=== PATIENT | male | born 1975 | race Caucasian/White ===

== ENCOUNTER 2017-01-05 13:02 | Outpatient (CLI) ==
[2015-05-21 08:37] VITALS: BMI 30.8
--- NOTE | 2017-01-05 13:36 | DI ---
EXAM: Right foot three views HISTORY: Bilateral foot pain COMPARISON: None FINDINGS: No fracture or dislocation. Mild osteoarthritis first MTP joint with joint space narrowing and osteophyte formation. Small spurring distal phalanx first digit. Mild posterior calcaneal enthe sopathy. IMPERSSION: 1. No fracture or dislocation. 2. Mild osteoarthritis first MTP joint.
--- NOTE | 2017-01-05 13:36 | DI ---
EXAM:Three-view left foot COMPARISON: None HISTORY: Trauma and pain FINDINGS: There is no acute fracture or dislocation. Alignment is anatomic. Joint spaces are well preserved. There is a small bony spur seen involving the great toe. There is a small calcaneal Achil les spur. Soft tissues are unremarkable. No unexpected radio-opaque foreign bodies. IMPRESSION: No acute osseous abnormality.
== END 2017-01-05 13:03 | disposition home or self-care (01) ==
LOC: RAD 13:02
PROVIDERS: ATTEND Family Medicine
DX: M79.671 Pain in right foot (principal); M79.672 Pain in left foot